=== PATIENT | male | born 1990 | race Two or more races ===

== ENCOUNTER 2019-01-01 21:11 | Emergency (ER) | payer OTHER ==
[~2019-01-01] VITALS: Ht 177.8 cm; Wt 95.7 kg
[2019-01-01 21:27] VITALS: BP 133/71
== END 2019-01-02 00:50 | disposition home or self-care (01) ==
LOC: ER 21:11
DX: S90.31XA Contusion of right foot, initial encounter (principal); Z02.89 Encounter for other administrative examinations; V49.49XA Driver injured in collision with other motor vehicles in traffic accident, initial encounter; Y93.89 Activity, other specified; Y92.488 Other paved roadways as the place of occurrence of the external cause; Y99.8 Other external cause status
CPT/HCPCS: 73630-TC